=== PATIENT | male | born 2000 | race Caucasian/White ===

== ENCOUNTER → 2020-12-14 | Outpatient (CLI) | payer OTHER ==
--- NOTE | 2020-12-14 07:50 | REPVR ---
PROCEDURE INFORMATION: Exam: CT Head Without Contrast Exam date and time: 12/14/2020 7:40 AM Age: 20 years old Clinical indication: Other: Nose bleeds; Additional info: Nosebleeds, difficulty breathing through nose TECHNIQUE: Imaging protocol: Computed tomography of the head without contrast. Radiation optimization: All CT scans at this facility use at least one of these dose optimization techniques: automated exposure control; mA and/or kV adjustment per patient size (includes targeted exams where dose is matched to clinical indication); or iterative reconstruction. COMPARISON: No relevant prior studies available. FINDINGS: Brain: Normal. No hemorrhage. Unremarkable white matter. No mass effect. Cerebral ventricles: No ventriculomegaly. Bones/joints: Unremarkable. No acute fracture. Paranasal sinuses: Visualized sinuses are unremarkable. No fluid levels. Mastoid air cells: Visualized mastoid air cells are well aerated. Soft tissues: Unremarkable. IMPRESSION: No acute intracranial abnormality. Electronically signed by: Madeline Palomo On 12/14/2020 07:51:00 AM
== END ==
LOC: M RAD 07:31
PROVIDERS: ATTEND Physician Assistant
DX: R06.09 Other forms of dyspnea (principal)

== ENCOUNTER 2021-09-18 08:05 | Day surgery (SDC) | payer OTHER ==
[~2021-09-18] VITALS: Ht 170.2 cm; Wt 86.2 kg
[~2021-09-18 08:05] MED LIST: LR 1,000 ML IV ONE
[2021-09-18] MEDS ORDERED: MIDAZOLAM INJ 2MG/2ML VIAL (J2250 PER 1MG) As Ordered ONE (09:34)
[2021-09-18] MEDS ORDERED: propofoL 200 MG/20 ML VIAL As Ordered ONE (09:35)
[2021-09-18] MEDS ORDERED: fentaNYL 100 MCG/2 ML INJECTION (J3010) As Ordered ONE ×2 (09:35→10:51)
[2021-09-18] MEDS ORDERED: ONDANSETRON 4MG/2ML VIAL As Ordered ONE (09:35)
[2021-09-18] MEDS ORDERED: ROCURONIUM BROMIDE 50 MG/5 ML VIAL As Ordered ONE (09:35)
[2021-09-18] MEDS ORDERED: LIDOCAINE 2% 100MG/5ML SDV (FOR ANES.) As Ordered ONE (09:35)
[2021-09-18] MEDS ORDERED: dexameTHASONE 4 MG/ML 1ML VIAL (J1100 PER 1MG) As Ordered ONE (09:35)
[2021-09-18] MEDS ORDERED: EPINEPHrine 1MG/ML INJ 30ML MD-VIAL As Ordered ONE (10:03)
[2021-09-18] MEDS ORDERED: LIDOCAINE W/EPINEPHRINE 1% 20ML VIAL As Ordered ONE (10:03)
[2021-09-18] MEDS ORDERED: METHYLENE BLUE 0.5% (5MG/ML) 10 ML AMP (PROVAYBLUE) As Ordered ONE (10:03)
[2021-09-18] MEDS ORDERED: COCAINE 4% 4ML NASAL SOLUTION BTL As Ordered ONE (10:08)
[2021-09-18] MEDS ORDERED: ACETAMINOPHEN 1000MG 100ML IV BTL (OFIRMEV) (J0131 PER 10MG) As Ordered ONE (10:32)
[2021-09-18] MEDS ORDERED: SUGAMMADEX SODIUM 500 MG/5 ML VIAL (BRIDION) As Ordered ONE (10:44)
[2021-09-18] MEDS ORDERED: GLYCOPYRROLATE INJ 0.2 MG/ML 2 ML VIAL As Ordered ONE (11:16)
[2021-09-18] MEDS ORDERED: OXYMETAZOLINE 0.05% NASAL SPRAY (AFRIN) As Ordered ONE (11:19)
[2021-09-18] MEDS ORDERED: NORCO, ANEXSIA 5/325MG TABLET (HYDROcodone/ACETAMINOPHEN) PO PRN (12:00)
[2021-09-18] MEDS ORDERED: ONDANSETRON 4MG/2ML VIAL IV PRN ×2 (12:00)
[2021-09-18] MEDS ORDERED: oxyCODONE 5MG TAB PO PRN (12:00)
[2021-09-18] MEDS ORDERED: METOCLOPRAMIDE INJ 10MG/2ML VIAL (J2765 PER 1) IV PRN (12:00)
[2021-09-18] MEDS ORDERED: HYDROMORPHONE HCL 0.5 MG/ 0.5 ML SYRINGE (J1170 PER 1) IV PRN (12:00)
[2021-09-18] MEDS ORDERED: LR 1,000 ML IV SCH (12:00)
[2021-09-18] MEDS ORDERED: MORPHINE 10 MG/ML 1ML VIAL (J2270) IV PRN (12:00)
[2021-09-18 12:25] VITALS: BP 135/83
--- NOTE | 2021-09-19 08:30 | ROOPDOC ---
[facility] Report Of Operation Report of Operation DATE OF PROCEDURE: 09/18/21 PREPROCEDURE DIAGNOSES: Septal deviation, hypertrophic inferior turbinates. POSTPROCEDURE DIAGNOSES: Same. PROCEDURE PERFORMED: Septoplasty bilateral inferior turbinoplasty. SURGEON: MD Joel [employer]CTIONAL [employer]PPLY SUPERVISOR: MD Lidia ANESTHESIA: General. ESTIMATED BLOOD LOSS: Approximately 30 mL. COMPLICATIONS: None. REMARKS: . FINDINGS: SPECIMENS REMOVED: None PROCEDURE NOTE: . Patient was seen in the office and was diagnosed with the above condition. A decision was made in consultation with the patient after explanation of risks and benefits to undergo the above-named procedure. The patient was admitted through the same-day surgery program, taken to the operating room where general anesthetic was administered via intravenous injection. Patient was then intubated endotracheally. The nose was decongested with 4 mL of 4% cocaine solution and nasal pledgets. Patient was draped in the usual sterile fashion. The pledgets were removed. The left speculum was injected with 1% lidocaine and epinephrine. Using a [place] blade to have right hemitransfixion incision was created. Using the Breeding elevator. The mucosa was elevated and the subperichondrial plane. This was extended posteriorly over the perpendicular plate of the ethmoid and inferiorly over the vomer. We the bony and cartilaginous septums with the Breeding elevator and elevated on the opposite side. The deviated portion of the bone and cartilage posteriorly was removed. A strip of cartilage was removed inferiorly, taking care to leave more than a centimeter of tip support. There was a deviated portion of cartilage superiorly and caudally. We made several vertical incisions in this cartilage. We elevated on either side of the maxillary crest and the deviated portion was removed with a 4 mm osteotome. A portion of cartilage was then placed back into the flap. We approximated the anterior hemotransfixion incision with interrupted 4-0 chromic suture. The septum was quilted with interrupted 4-0 plain gut suture. The left inferior turbinate was injected with 1% lidocaine with epinephrine. A vertical incision was made with a [place] blade. We elevated the mucosa off the submucosal plane. We then lateralized this with the Barreto elevator. The right inferior turbinate was injected with 1% lidocaine with epinephrine. We elevated the mucosa off the turbinate with the Breeding elevator. The 2.9 mm microdebrider blade was used to reduce this along its length. This was then lateralized with a Barreto elevator. Magnetic splints were placed on either side of the septum and secured anteriorly with a 3-0 nylon suture. Slim lines were placed against the inferior turbinates and removed in recovery. A mustache dressing was placed under the nose. The patient was then allowed to recover from anesthesia and was taken to the post anesthesia care area in stable condition. There were no complications during this procedure. DESCRIPTION OF PROCEDURE: . Marko Maldonado MD Sep 19, 2021 08:30
== END 2021-09-18 12:52 | disposition home or self-care (01) ==
LOC: M SDC 08:05
PROVIDERS: ATTEND Otolaryngology
DX: J34.2 Deviated nasal septum (principal); J34.3 Hypertrophy of nasal turbinates; I10 Essential (primary) hypertension
CPT/HCPCS: 30140; 30520; C9046; J0131; J1100; J2250; J2405; J2765; J3010; Q9968